=== PATIENT | female | born 1980 | race Asian ===

== ENCOUNTER 2016-10-16 14:39 | Inpatient (IN) | payer SELFPAY ==
[~2016-10-16] VITALS: Ht 162.6 cm; Wt 68.0 kg
[2016-10-22] MEDS: LACTATED RINGERS 1,000 ML IV SCH ×3 (03:07→18:26)
[2016-10-22] MEDS ORDERED: OXYTOCIN 20 UNITS/LR PREMIX 1,000 ML IV SCH (03:07)
[2016-10-22] MEDS ORDERED: CARBOPROST 250 MCG/ML AMP IM PRN (03:10)
[2016-10-22] MEDS ORDERED: METHYLERGONOVINE 0.2 MG/ML AMP IM SCH (03:10)
[2016-10-22] MEDS ORDERED: PROMETHAZINE 25 MG/ML VIAL IVP PRN (03:10)
[2016-10-22] MEDS ORDERED: IBUPROFEN 800 MG TAB PO PRN (03:10)
[2016-10-22] MEDS ORDERED: NALBUPHINE 10 MG/ML AMP IVP PRN (03:10)
[2016-10-22] MEDS ORDERED: PRENATAL VITAMI1 TA2 PO (03:16)
[2016-10-22] MEDS ORDERED: MISOPROSTOL 25 MCG TAB ONE ×2 (03:37→07:44)
[2016-10-22 04:22] VITALS: BP 115/70
[2016-10-22] MEDS: MISOPROSTOL 25 MCG TAB VG SCH ×2 (04:26→07:48)
--- NOTE | 2016-10-22 10:05 | NUR ---
PATIENT HAS BEEN SCREENED AND CATEGORIZED LOW NUTRITION RISK. PATIENT WILL BE SEEN WITHIN 7 DAYS OF ADMISSION. 10/28/[address]
[2016-10-22] MEDS ORDERED: OXYTOCIN 20 UNITS/LR PREMIX 1,000 ML IV ONE (11:51)
[2016-10-22] MEDS ORDERED: MISOPROSTOL 100 MCG TAB RC SCH (14:00)
[2016-10-22] MEDS ORDERED: OXYTOCIN 10 UNITS/ML VIAL IM SCH (14:00)
[2016-10-22] MEDS ORDERED: MORPHINE SULFATE 10 MG/ML SYR IVP ONE (17:20)
[2016-10-22] MEDS ORDERED: PROMETHAZINE 25 MG/ML VIAL IVP ONE (17:20)
[2016-10-22] MEDS ORDERED: MORPHINE SULFATE 10 MG/ML SYR ONE (17:24)
[2016-10-22] MEDS ORDERED: PROMETHAZINE 25 MG/ML VIAL ONE (17:25)
[2016-10-22] MEDS ORDERED: BUPIVACAINE 0.125%/NS PREMIX 250 ML ONE (19:29)
[2016-10-22] MEDS ORDERED: OXYTOCIN 10 UNITS/ML VIAL ONE (22:30)
[2016-10-22] MEDS ORDERED: MEASLES, MUMPS, AND RUBELLA 1 VIAL SQVAC PRN (22:45)
[2016-10-22] MEDS ORDERED: WITCH HAZEL 40 PAD PACKAGE TP PRN (22:45)
[2016-10-22] MEDS ORDERED: oxyCODONE/APAP 5/325 MG 1 TAB TAB PO PRN (22:45)
[2016-10-22] MEDS ORDERED: TEMAZEPAM 15 MG CAP PO PRN (22:45)
[2016-10-22] MEDS ORDERED: HYDROcodone/APAP 5/325 MG 1 TAB TAB PO PRN (22:45)
[2016-10-22] MEDS ORDERED: BENZOCAINE/MENTHOL 20%-0.5% 60 GM CAN TP PRN (22:45)
[2016-10-22] MEDS ORDERED: METHYLERGONOVINE 0.2 MG/ML AMP IM PRN (22:45)
[2016-10-22] MEDS ORDERED: OXYTOCIN 10 UNITS/ML VIAL IM PRN (22:45)
[2016-10-22] MEDS ORDERED: METHYLERGONOVINE 0.2 MG/ML AMP ONE (23:06)
[2016-10-23] MEDS ORDERED: INFLUENZA VIRUS VACCINE QUAD 0.5 ML SYR IMVAC SCH (00:30)
[2016-10-23] MEDS: BETHANECHOL 25 MG TAB PO PRN (06:22)
[2016-10-23] MEDS: IBUPROFEN 800 MG TAB PO PRN ×3 (08:20→23:56)
[2016-10-23] MEDS ORDERED: DOCUSATE SOD/SENNA 50/8.6 MG 1 TAB PO SCH (21:00)
[2016-10-24] MEDS: IBUPROFEN 800 MG TAB PO PRN (08:31)
[2016-10-24] MEDS: BETHANECHOL 25 MG TAB PO PRN (09:06)
[2016-10-24] MEDS ORDERED: MOTRIN600 MG PO (13:28)
== END 2016-10-24 14:15 | disposition home or self-care (01) | DRG 775 ==
LOC: MLD 10-22 00:35 → MFCC 10-23 01:35
PROVIDERS: ADMIT Obstetrics & Gynecology; ATTEND Obstetrics & Gynecology
PROC: 10E0XZZ Delivery of Products of Conception, External Approach (ICD-10-PCS; principal; 2016-10-22)
PROC: 10907ZC Drainage of Amniotic Fluid, Therapeutic from Products of Conception, Via Natural or Artificial Opening (ICD-10-PCS; 2016-10-22)
PROC: 3E033VJ Introduction of Other Hormone into Peripheral Vein, Percutaneous Approach (ICD-10-PCS; 2016-10-22)
PROC: 3E0S3CZ (ICD-10-PCS; 2016-10-22)
PROC: 00HU33Z Insertion of Infusion Device into Spinal Canal, Percutaneous Approach (ICD-10-PCS; 2016-10-22)
PROC: 3E0234Z Introduction of Serum, Toxoid and Vaccine into Muscle, Percutaneous Approach (ICD-10-PCS; 2016-10-22)
DX: O80 Encounter for full-term uncomplicated delivery (principal); Z37.0 Single live birth; Z3A.39 39 weeks gestation of pregnancy; Z23 Encounter for immunization